=== PATIENT | male | born 1990 | race Caucasian/White ===

== ENCOUNTER 2016-09-06 09:45 | Outpatient (CLI) | payer OTHER ==
--- NOTE | 2016-09-06 10:37 | DIAGNOSTIC IMAGING REPORT ---
PROCEDURE: CT ABD/PELVIS WITH CONTRAST CLINICAL INDICATION: LLQ ABDOMINAL PAIN TECHNIQUE: 125 ml of Isovue 300 were injected intravenously and axial images were obtained of the entire abdomen and pelvis with sagittal and coronal reformations. COMPARISON: None. FINDINGS: ABDOMEN: Lung bases are clear. Heart size is normal. Liver, gallbladder, pancreas, spleen, adrenal glands, kidneys and abdominal aorta are normal. PELVIS: Moderate inflammatory changes at the junction of the descending and sigmoid colon with a few diverticula. No evidence of an abscess or free air. Normal appendix. Prostate and bladder are normal. Bones are unremarkable. IMPRESSION: 1. Diverticulitis at the junction of the descending and sigmoid colon. No abscess or free air 2. Results discussed with KRISTOPHER Jenkins All CT scans at this facility use dose modulation, iterative reconstruction, and/or weight-based dosing when appropriate to reduce radiation dose to as low as reasonably achievable.
== END 2016-09-06 23:00 ==
LOC: CT SRH 09:45
DX: K57.32 Diverticulitis of large intestine without perforation or abscess without bleeding (principal)